=== PATIENT | female | born 2000 | race African-American/Black ===

== ENCOUNTER 2020-02-20 15:13 | Emergency (ER) | payer OTHER ==
[~2020-02-20] VITALS: Ht 157.5 cm; Wt 59.0 kg
[2020-02-20 15:25] VITALS: BP 111/61; TEMP 98.7
[2020-02-20 15:48] LABS: PLATELET COUNT 308 K/uL (152-353)
[2020-02-20 16:03] LABS: POTASSIUM 3.7 mmol/L (3.6-5.2)
== END 2020-02-20 16:15 | disposition home or self-care (01) ==
LOC: ED 15:13
PROVIDERS: Hospitalist
DX: R10.2 Pelvic and perineal pain (principal); T83.84XA Pain due to genitourinary prosthetic devices, implants and grafts, initial encounter
CPT/HCPCS: 80048; 81000; 81025; 85027; 96372; 99283; J1885